=== PATIENT | female | born 1930 | race Caucasian/White ===

== ENCOUNTER → 2018-01-29 | Outpatient (CLI) | payer MEDICARE, BC | END | disposition home or self-care (01) | LOC: US 06:56 | DX: N28.1 Cyst of kidney, acquired (principal); I10 Essential (primary) hypertension; E78.5 Hyperlipidemia, unspecified | CPT/HCPCS: 76700 ==

== ENCOUNTER → 2018-10-10 | Outpatient (CLI) | payer MEDICARE, BC ==
[2018-05-22 09:43] VITALS: BP 154/64
[~2018-10-10] MED LIST: ASPI-482 PO; BENA40TA15 PO; ESTR0.3T PO; HYDR12.58 PO; LEVO50TA5 PO; LISI-130 PO; METO25TA4 PO; MULT-246 PO; OMEP20CA5 PO; SIMV40TA PO; SPIR25TA PO
--- NOTE | 2018-10-10 15:19 | RAD ---
Indication: Chronic kidney disease stage III. Follow-up of right renal cyst ultrasound. TECHNIQUE: Grayscale, color Doppler images of the kidneys. COMPARISON: Ultrasound abdomen from 01/29/2018 FINDINGS: There is a lobulated anechoic lesion in the upper pole of the right kidney measuring 3.1 x 4.1 x 4.5 cm, previously 5.6 x 3.8 x 6.0 cm without internal vascularity, septations or solid mural nodularity. The right kidney demonstrates no hydronephrosis. The right kidney measures 10.2 x 4.3 x 5.7 cm (longitudinal, AP, transverse). The left kidney measures 10.6 x 5.3 x 4.3 cm without hydronephrosis but with diffusely thin cortex. Visualized bladder within normal limits. IMPRESSION: 1. Slight interval decrease in the size of right upper pole simple renal cyst. 2. Evidence of chronic kidney disease. No hydronephrosis. Electronically signed by: Errol Alonzo DO (10/10/2018 3:15 PM) [facility]
== END | disposition home or self-care (01) ==
LOC: US 14:26
PROVIDERS: ATTEND Internal Medicine Nephrology
DX: N28.1 Cyst of kidney, acquired (principal); I12.9 Hypertensive chronic kidney disease with stage 1 through stage 4 chronic kidney disease, or unspecified chronic kidney disease; N18.3 Chronic kidney disease, stage 3 (moderate); Z79.899 Other long term (current) drug therapy
CPT/HCPCS: 76770

== ENCOUNTER → 2019-02-05 | Outpatient (CLI) | payer MEDICARE, BC ==
[2018-05-22 09:43] VITALS: BP 154/64
[~2019-02-05] MED LIST changes: +POTA10TA12 PO
--- NOTE | 2019-02-05 09:29 | CARD ---
MR#: [id number] Date of Study: 02/05/2019 Ordering Physician: TAMMY NIÑO, Referring Physician: TAMMY NIÑO, Tech: Floresita Emerson [facility] APPROVED REPORT EXAM: Two-dimensional and M-mode echocardiogram with Doppler and color Doppler. Other Information Quality : GoodHR: 55bpm Rhythm : Bradycardia INDICATION Congestive Heart Failure 2D DIMENSIONS RVDd3.5 (2.9-3.5cm)Left Atrium(2D)2.5 (1.6-4.0cm) IVSd0.9 (0.7-1.1cm)Aortic Root(2D)2.9 (2.0-3.7cm) LVDd3.5 (3.9-5.9cm)LVOT Diameter1.9 (1.8-2.4cm) PWd0.8 (0.7-1.1cm)LVDs2.4 (2.5-4.0cm) FS (%) 30.2 %SV29.7 ml LVEF(%)58.6 (>50%) M-Mode DIMENSIONS Left Atrium(MM)3.74 (2.5-4.0cm)Aortic Root2.82 (2.2-3.7cm) Aortic Valve AoV Peak Kermit.111.1cm/sAoV VTI28.3cm AO Peak GR.4.9mmHgLVOT Peak Kermit.101.9cm/s AO Mean GR.2mmHgAVA (VMAX)2.54cm2 AARTI (VTI)2.50cm2 Mitral Valve MV E Ukmcccsf32.0cm/sMV DECEL KCTK879ys MV A Wlhtudra69.5cm/sE/A Ratio1.3 Pulmonary Valve PV Peak Hrhnigav51.8cm/s Tricuspid Valve TR P. Qbtwaspc022vy/sRAP GCNWVUKT4scBd TR Peak Gr.43aaWxGDZB06ejOy LEFT VENTRICLE The left ventricle is normal size. There is normal left ventricular wall thickness. The left ventricu lar systolic function is normal and the ejection fraction is within normal range. The Ejection Fracti on is 55-60%. There is normal LV segmental wall motion. Transmitral Doppler flow pattern is Grade II- pseudonormal filling dynamics. RIGHT VENTRICLE The right ventricle is mildly dilated. There is normal right ventricular wall thickness. The right ve ntricular systolic function is normal. ATRIA The left atrium size is normal. The right atrium size is normal. The interatrial septum is intact wit h no evidence for an atrial septal defect or patent foramen ovale as noted on 2-D or Doppler imaging. AORTIC VALVE The aortic valve is mildly calcified. The aortic valve is trileaflet. Doppler and Color Flow revealed no significant aortic regurgitation. There is no significant aortic valvular stenosis. MITRAL VALVE The mitral valve is calcified but opens well. There is no evidence of mitral valve prolapse. There is no mitral valve stenosis. Doppler and Color-flow revealed mild mitral regurgitation. TRICUSPID VALVE The tricuspid valve is normal in structure and function. Doppler and Color Flow revealed mild tricusp id regurgitation.There is mild pulmonary hypertension.The PA pressure was estimated at 39 mmHg. There is no tricuspid valve prolapse or vegetation. There is no tricuspid valve stenosis. PULMONIC VALVE Doppler and Color Flow revealed trace pulmonic valvular regurgitation. There is no pulmonic valvular stenosis. GREAT VESSELS The aortic root is normal in size. The ascending aorta is normal in size. The IVC is normal in size a nd collapses >50% with inspiration. PERICARDIAL EFFUSION There is no evidence of significant pericardial effusion. Critical Notification Critical Value: No <Conclusion> The left ventricular systolic function is normal and the ejection fraction is within normal range. Th e Ejection Fraction is 55-60%. There is normal LV segmental wall motion. Doppler and Color Flow revealed mild tricuspid regurgitation.There is mild pulmonary hypertension.The PA pressure was estimated at 39 mmHg. Signed by : Sukh Andrade, Electronically Approved : 02/05/2019 09:28:52
--- NOTE | 2019-02-05 10:19 | RAD ---
MR#: [id number] Date of Study: 02/05/2019 Ordering Physician: TAMMY NIÑO, Referring Physician: TAMMY NIÑO, Tech: Jalyn Cartagena RDMS, STUARTT, RTR APPROVED REPORT Patient Location : OUT-PATIENT Indications Lower Extremity Edema : Bilateral Greater Saphenous Veins (GSV) Significant venous relux noted in the RIGHT GSV at the following levels : Superficial Femoral Junctio n, Proximal Thigh, Mid Thigh, Mid Thigh, Proximal Calf, Mid Calf, Distal Calf Significant venous relux noted in the LEFT GSV at the following levels : Superficial Femoral Junction , Proximal Thigh, Mid Thigh, Distal Thigh Lesser Saphenous Veins (LSV) Significant venous reflux is noted in the Right LSV. Findings Limited grayscale images of the saphenofemoral junctions do not reveal any obvious evidence of thromb us. The right great saphenous vein measures approximately 5.9 mm and has a reflux time of 2.7 seconds. Th e left great saphenous vein measures approximately 6 mm and has a reflux time of 2.6 seconds. The right small saphenous vein measures approximately 2.7 mm and has a reflux time of 4 seconds. The left lesser saphenous vein is not well visualized appears to be thrombosed. Critical Notification Critical Value: No <Conclusion> Positive for reflux in the bilateral greater and right lesser saphenous vein. The left lesser sapheno us vein appears to be occluded. Signed by : Sukh Andrade, Electronically Approved : 02/05/2019 10:18:41
--- NOTE | 2019-02-05 10:25 | RAD ---
MR#: [id number] Date of Study: 02/05/2019 Ordering Physician: TAMMY NIÑO, Referring Physician: TAMMY NIÑO, Tech: Bethany Ferreira RVT, [facility] APPROVED REPORT Bilateral Lower Extremity Venous Study for CAD/ Leg Swelling Patient Location: OUT-PATIENT Indications Bilateral LE Swelling Vein Imaging (Right) CFV (R): Compressible SFJ (R): Compressible FEM (R): Compressible POP (R): Compressible DFV (R): Compressible PTV (R): Compressible GSV (R): Compressible Peroneals (R): Compressible Vein Imaging (Left) CFV (L): Compressible SFJ (L): Compressible FEM (L): Compressible POP (L): Compressible DFV (L): Compressible PTV (L): Compressible GSV (L): Compressible Peroneals (L): Compressible Doppler Evaluation (Right) CFV (R): Phasic POP (R):Phasic Doppler Evaluation (Left) CFV (L):Phasic POP (L):Phasic Findings The bilateral lower extremity deep veins were evaluated for thrombus with color Doppler, spectral and grayscale images. On the right the grayscale images of the common femoral, superficial femoral and popliteal veins do n ot demonstrate any evidence of thrombus and these veins appear to be compressible. The below-knee vei ns were not well visualized but grossly appear to be compressible. Spectral imaging and color Doppler do not reveal any evidence of obstruction to flow with normal respirophasic variation above the knee . Below the knee there is spontaneous flow noted. On the left, the grayscale images of the common femoral, superficial femoral and popliteal veins do n ot demonstrate any evidence of thrombus and these veins appear to be compressible. The below-knee vei ns again were not well visualized but grossly appear to be compressible. Spectral imaging and color D oppler do not reveal any evidence of obstruction to flow with normal respirophasic variation above th e knee. The below-knee veins demonstrate spontaneous flow. Critical Notification Critical Value: No <Conclusion> Negative for DVT in the bilateral lower extremities. Signed by : Sukh Andrade, Electronically Approved : 02/05/2019 10:25:02
== END | disposition home or self-care (01) ==
LOC: US 07:05
PROVIDERS: ATTEND Internal Medicine Cardiovascular Disease
DX: I08.1 Rheumatic disorders of both mitral and tricuspid valves (principal); I87.2 Venous insufficiency (chronic) (peripheral); I27.20 Pulmonary hypertension, unspecified; I25.10 Atherosclerotic heart disease of native coronary artery without angina pectoris
CPT/HCPCS: 93306; 93970

== ENCOUNTER → 2021-02-17 | Outpatient (CLI) | payer MEDICARE, BC ==
[2018-05-22 09:43] VITALS: BP 154/64
[~2021-02-17] MED LIST changes: +HYDR-2759 PO; +INUL2TAB4 PO; -POTA10TA12 PO; +POTASSIUM CHLO10 ME1 PO
== END ==
LOC: LAB 10:17
PROVIDERS: ATTEND Surgery
DX: Z01.812 Encounter for preprocedural laboratory examination (principal); R92.8 Other abnormal and inconclusive findings on diagnostic imaging of breast; Z20.822 Contact with and (suspected) exposure to COVID-19
CPT/HCPCS: U0003; U0005

== ENCOUNTER 2021-02-22 09:47 | Day surgery (SDC) | payer MEDICARE, BC ==
[~2021-02-22] VITALS: Ht 162.6 cm; Wt 62.0 kg
[~2021-02-22 09:47] MED LIST changes: -HYDR-2759 PO; +HYDROmorphone 2 MG/ML VIAL IVP PRN; +IV RINGERS,LACTATED 1000ML 1,000 ML IV SCH; +MORPHINE SULFATE 2 MG/ML VIAL. IVP PRN; +PROCHLORPERAZINE 10 MG/2 ML VIAL. IVP PRN; +fentaNYL PF VIAL 100 MCG/2 ML VIAL IVP PRN
[2021-02-22] MEDS ORDERED: fentaNYL PF VIAL 100 MCG/2 ML VIAL ONE (10:35)
[2021-02-22] MEDS ORDERED: LIDOCAINE 2% PF 5 ML VIAL. ONE (10:35)
[2021-02-22] MEDS ORDERED: PROPOFOL 10 MG/ML (20ML) VIAL. IV ONE (10:35)
[2021-02-22] MEDS ORDERED: LIDOCAINE 1%/EPI 1:100,000 20 ML VIAL. ONE (11:45)
[2021-02-22] MEDS ORDERED: BUPIVACAINE-EPI 0.5%-1:200000 MPF 30 ML VIAL. ONE (11:45)
[2021-02-22] MEDS ORDERED: HYDROmorphone 2 MG/ML VIAL IVP ONE (12:15)
[2021-02-22] MEDS ORDERED: ONDANSETRON PF 4 MG/2 ML VIAL. ONE (12:25)
[2021-02-22] MEDS ORDERED: ePHEDrine PF IN SALINE 50 MG/10 ML SYRINGE. IV ONE (12:30)
--- NOTE | 2021-02-22 12:51 | PDOC4 ---
Operative Note Operative Note Operative Note: Preoperative Diagnosis: Right breast mass x2 Postoperative Diagnosis: Same Procedure: Right excisional breast biopsy with needle localization Surgeon: Edvin Hoop Coiler: Boby ARROYO Anesthesia: General EBL: 10 mL Specimen: Right breast biopsy to pathology Drains: None Complications: None Indication: The patient is an 89-year-old female who is referred following recent mammographic and sonographic evaluation of the right breast. This identified to retroareolar small nodules consistent with intraductal papillomas. Recommendation was made for biopsy for definitive tissue diagnosis. The risks of surgery were discussed with the patient which include bleeding, infection, pain, scar tissue, wound healing problems, anesthetic risk, potential need for additional surgery procedure. She understands and would like to proceed Description: The patient initially went to radiology where she underwent needle localization of the involved area. She was then brought to the operating room and placed supine in the operating table. General anesthesia was performed. The right breast was prepped with ChloraPrep and draped in a standard surgical manner. The wire was entering near the lateral aspect a few centimeters from the nipple. A curved lateral periareolar incision was made with a scalpel. Cau rachel dissection was carried down to the breast parenchyma. The wire was identified and followed until its distal tip. A combination of sharp and cautery dissection was used. The wire terminated in the superficial retroareolar tissues. We were able to elevate the skin of the nipple and mobilize the localized tissues. Cautery was used for full excision of the involved tissue which was sent to pathology. Hemostasis was achieved with cautery. The skin was approximated with 4-0 Monocryl and infiltrated with half percent Marcaine with epinephrine. Steri-Strips and a sterile dressing were applied. The patient tolerated the procedure well and was sent to the recovery room in stable condition. At the end of the case all counts were correct. ULISES VITAL MD Feb 22, 2021 12:51
--- NOTE | 2021-02-22 12:53 | DISCH ---
DISCHARGE INSTRUCTIONS Condition on Discharge Condition on Discharge: Stable Activity After Discharge Activity Instructions for Disc: Resume previous activity Diet after Discharge Diet after Discharge: Regular Wound Incision Care Wound/Incision Care: Other, see below (keep dressing clean and dry) Follow-Up Follow up with: Dr Vital in 1 week in office, call for appointment [phone] ULISES VITAL MD Feb 22, 2021 12:53
[2021-02-22] MEDS ORDERED: HYDR-2759 PO (13:20)
[2021-02-22] MEDS ORDERED: HYDROcodone/APAP 5/325MG 1 TAB TABLET ONE (13:28)
[2021-02-22] MEDS ORDERED: HYDROcodone/APAP 5/325MG 1 TAB TABLET PO ONE (13:30)
[2021-02-22 13:45] VITALS: BP 154/74
--- NOTE | 2021-03-02 11:09 | PATHOLOGY ---
[facility] Accession Number: [id number] . 01 Material submitted: . breast - RIGHT BREAST BIOPSY. Modifiers: right . 01 Clinical history: . ABNORMAL MAMMOGRAM RIGHT BREAST BIOPSY WITH NEEDLE LOCALIZATION . 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 - DCIS INVOLVES RESECTION MARGIN. - Fibrocystic changes including cyst formation, sclerosing adenosis, and duct ectasia. - Coarse microcalcifications associated with DCIS. - Please see cancer summary below. . SURGICAL PATHOLOGY CANCER CASE SUMMARY Breast DCIS (V 1.0.0.1) . Procedure: Biopsy with needle localization Specimen Laterality: Right Tumor Site: Not specified Histologic Type: Ductal carcinoma in situ (DCIS) Architectural Patterns: Cribriform, micropapillary, solid Nuclear Grade: Grade II (intermediate) Necrosis: Not identified Microcalcifications: Present in DCIS Biomarker: Not performed. (MLK:pit; 03/01/2021) QTP 03/01/2021 1457 Local . 02 Comment: The case is seen in co-review with Dr. Bruce Sykes who concurs with the above diagnosis. . The case was prepared and proofread by Dr. Wiley and electronically released by Dr. Anderson. . 02 Electronically signed: . Ld Anderson MD, Pathologist NPI- [id number] . 01 Gross description: . Fixative: Formalin Labeled: R breast biopsy Specimen received: Unoriented portion of yellow-rodas tissue Oriented: No Dimensions: 2.7 x 2.7 x 1.3 cm Weight: 3 g The specimen is inked black. Number of slices: 7 Lesion: 2.5 x 1.3 x 0.7 cm area of rodas-white fibrous/cystic tissue Lesion location: Slices 2-6 The lesion grossly abuts the inked margin. Biopsy clip: None identified Uninvolved breast parenchyma: Yellow and lobulated . The specimen is submitted as follows: A1 slice 1, perpendicular sections A2 slice 2-3 A3 slice 4-5 A4 slice 6 A5 slice 7, perpendicular sections . The specimen is removed from the patient at 1220 and placed in formalin at 1225 on 02/22/2021. The specimen is removed from formalin at 1850 on 02/23/2021. The specimen is in formalin for greater than 6 hours and less than 72 hours. ([facility] [place]; 02/23/2021) [facility] 02/23/2021 0857 Local . 02 Microscopic: . Immunohistochemical stain results (properly controlled) P63(A1, A2, A3, A4, A5) - Highlights myoepithelial cells, and notable absence of myoepithelial cells in areas of DCIS. Myosin(A1, A2, A3, A4, A5) - Highlights myoepithelial cells, notable absence of myoepithelial cells in areas of DCIS. E-cadherin (A1, A2, A3, A4, A5) - Highlights ductal epithelial cells. (MLK:ricky; 03/01/2021) . 02 Pathologist provided ICD-10: D05.11, N60.11, N60.01, N60.21, N60.41 . 02 CPT . 260624, U32830, [id number] Specimen Comment: A courtesy copy of this report has been sent to [phone] Specimen Comment: Report sent to Performed at: 01 [facility] [address], [place] [id number] MD Nathan Zavala MD Phone: [phone] Performed at: 02 [facility] [address] [id number] MD Ld Anderson MD Phone: [phone]
== END 2021-02-22 14:01 | disposition home or self-care (01) ==
LOC: SURG 09:47
PROVIDERS: ATTEND Surgery
DX: R92.8 Other abnormal and inconclusive findings on diagnostic imaging of breast (principal); N63.10 Unspecified lump in the right breast, unspecified quadrant; D05.11 Intraductal carcinoma in situ of right breast; N60.11 Diffuse cystic mastopathy of right breast; N60.01 Solitary cyst of right breast; N60.21 Fibroadenosis of right breast; N60.41 Mammary duct ectasia of right breast; I11.0 Hypertensive heart disease with heart failure; I50.9 Heart failure, unspecified; E78.00 Pure hypercholesterolemia, unspecified; E03.9 Hypothyroidism, unspecified; Z90.710 Acquired absence of both cervix and uterus; Z98.890 Other specified postprocedural states; Z88.0 Allergy status to penicillin; Z88.1 Allergy status to other antibiotic agents; Z85.828 Personal history of other malignant neoplasm of skin; Z79.82 Long term (current) use of aspirin; Z79.4 Long term (current) use of insulin; Z79.899 Other long term (current) drug therapy
CPT/HCPCS: 19125; 19285; 77065; 88305; 88341; 88342; A4364; A6254; A6258; A6402; C1819; J1956; J2405; J2704; J3010; A4452; J3490

== ENCOUNTER → 2021-02-22 | Outpatient (CLI) | payer MEDICARE, BC ==
[2018-05-22 09:43] VITALS: BP_SYST 154
[2021-02-22 13:45] VITALS: BP_DIAS 74
--- NOTE | 2021-02-22 15:27 | RAD ---
EXAM: Sonographic guided right breast needle-wire localization; right breast post localization mammog ge. HISTORY: 82-year-old female presents for needle-wire localization of suspected papilloma is within th e right breast demonstrated on a prior sonogram. TECHNIQUE: The risks of the procedure were discussed with the patient and written and and verbal cons ent was obtained. A timeout was performed. Significant imaging of the right breast was performed and the dilated ducts containing solid-appearing nodules within the subareolar location were identified. The skin in this location was sterilely prepped, draped and infiltrated with 1 percent lidocaine. A n eedle wire system was advanced through both nodules using sonographic guidance and the wire was deplo yed. The wire secured to the skin surface. A post biopsy mammogram confirms positioning of the wire w ithin the 9:00 subareolar aspect of the right breast. The patient tolerated the procedure without com plication and was transferred to the operative suite in stable condition. IMPRESSION: 1. Successful sonographic guided needle-wire localization of small solid-appearing nodules within dil ated ducts within the 9:00 subareolar aspect of the right breast. 2. Note is made that there are several additional small solid-appearing nodules within dilated ducts throughout the cerebral aspect of the right breast, the appearance of which favors papillomatosis. Th e superimposed on intraductal debris. The largest nodules demonstrated on the prior sonogram were tar geted for localization and tissue sampling. Electronically signed by: Margaret Horn MD (02/22/2021 3:24 PM) [id number]
== END | disposition home or self-care (01) ==
LOC: MAMMO 09:45
PROVIDERS: ATTEND Surgery
DX: N63.10 Unspecified lump in the right breast, unspecified quadrant (principal); R92.8 Other abnormal and inconclusive findings on diagnostic imaging of breast; I11.0 Hypertensive heart disease with heart failure; I50.9 Heart failure, unspecified; I25.10 Atherosclerotic heart disease of native coronary artery without angina pectoris; E78.00 Pure hypercholesterolemia, unspecified; K21.9 Gastro-esophageal reflux disease without esophagitis; E03.9 Hypothyroidism, unspecified; Z85.828 Personal history of other malignant neoplasm of skin; Z90.710 Acquired absence of both cervix and uterus; Z98.890 Other specified postprocedural states; Z79.82 Long term (current) use of aspirin; Z79.4 Long term (current) use of insulin; Z79.899 Other long term (current) drug therapy; Z88.0 Allergy status to penicillin; Z88.2 Allergy status to sulfonamides
CPT/HCPCS: 19285; 77065; C1819

== ENCOUNTER 2021-04-16 17:56 | Emergency (ER) | payer MEDICARE, BC ==
[~2021-04-16] VITALS: Ht 160 cm; Wt 59.1 kg
[~2021-04-16 17:56] MED LIST changes: +HYDR-2759 PO; -HYDROmorphone 2 MG/ML VIAL IVP PRN; -IV RINGERS,LACTATED 1000ML 1,000 ML IV SCH; -MORPHINE SULFATE 2 MG/ML VIAL. IVP PRN; -PROCHLORPERAZINE 10 MG/2 ML VIAL. IVP PRN; -fentaNYL PF VIAL 100 MCG/2 ML VIAL IVP PRN
[2021-04-16 18:20] LABS: BILIRUBIN,URINE NEGATIVE (NEG); CLARITY,URINE CLEAR; COLOR,URINE YELLOW; NITRITE,URINE NEGATIVE (NEG); PROTEIN,URINE NEGATIVE (NEG-TRACE); UROBILINOGEN,URINE 0.2 mg/dL (0.2 mg/dL)
[2021-04-16 18:26] LABS: BACTERIA,URINE 0 /HPF (0-FEW); WBC,URINE OCC /HPF (0-4)
[2021-04-16] MEDS ORDERED: IV NORMAL SALINE 1000ML BAG 1,000 ML IV ONE (18:30)
--- NOTE | 2021-04-16 18:47 | PHYS DOC ---
Past Medical History Past Medical History: GERD, High Cholesterol, Hypertension, Hypothyroid, Other Additional Past Medical Histor: SHINGLES, CELLULITIS Past Surgical History: Other Additional Past Surgical Histo: LIVER SURGERY,BASAL CELL CA NOSE,HEART CATH, Smoking Status: Never Smoker Alcohol Use: None Drug Use: None General Adult EDM: Chief Complaint: HYPERTENSION HPI: HPI: Patient is a 89 year old female past medical history hypothyroid presents with a chief complaint of hypertension. Prior to arrival patient was watching the [employer] game and decided to take her blood pressure. Blood pressure on the monitor was greater than 200/100 systolic. She denied any associated symptoms such as headache chest pain or shortness of breath. Patient's initial blood pressure shortly after arrival was 170 systolic. At the time of my exam patient blood pressure was again elevated at 220/120 systolic. Review of Systems: Review of Systems: Review of systems: Constitutional symptoms- No fever, no chills. Eyes- No Discharge, No Visual Loss Respiratory symptoms- No shortness of breath, No wheezing, No Dyspnea on Exertion Cardiovascular Systems; No chest pain, No Palpitations, No syncope Gastrointestinal symptoms: NO abdominal pain, no nausea, no vomiting or diarrhea. Genitourinary symptoms: No dysuria. Musculoskeletal symptoms: No back pain No extremity pain. NEUROLOGICAL Symptoms: No headache, no generalized weakness; No focal Weakness Skin: No rash. Heart Score: C/O Chest Pain: N/A Risk Factors: Risk Factors: DM, Current or recent (<one month) smoker, HTN, HLP, family history of CAD, obesity. Risk Scores: Score 0 - 3: 2.5% MACE over next 6 weeks - Discharge Home Score 4 - 6: 20.3% MACE over next 6 weeks - Admit for Clinical Observation Score 7 - 10: 72.7% MACE over next 6 weeks - Early Invasive Strategies Current Medications: Current Medications Medications (Trade) Dose Ordered Sig/Charmaine Start Time Stop Time Status Last Admin Dose Admin Sodium Chloride 1,000 ml @ 1,000 mls/hr 1X ONCE 04/16/21 18:30 04/16/21 19:29 Allergies: Allergies: Allergies Coded Allergies Type Severity Reaction Last Updated Verified Penicillins Allergy Intermediate HIVES 02/22/21 Yes Sulfa (Sulfonamide Antibiotics) Allergy Intermediate HIVES/RASH 02/22/21 Yes Physical Exam: PE: General: alert, no acute distress. Skin: warm, dry and intact. HENT: bilateral external ears normal, oropharynx moist, nose normal. Head:: Normocephalic, atraumatic. Neck: Trachea midline. Eyes: EOMI, Normal conjunctiva, No drainage CARDIOVASCULAR: Regular rate and rhythm RESPIRATORY: No respiratory distress Back: Full range of motion. Skin: Warm, dry, no erythema, no rash. MUSCULOSKELETAL: Full range of motion of bilateral upper and lower extremities. GASTROINTESTINAL: Abdomen soft without rebound or guarding. NEUROLOGICAL: Alert and noted to person, place and time. No neurological deficits observed Psychiatric: Cooperative. Normal judgment Current Patient Data: Labs: Laboratory Tests Test 04/16/21 18:06 Urine Collection Type Unknown Urine Color Yellow Urine Clarity Clear Urine pH 7.0 (<5.0-8.0) Urine Specific [place] <=1.005 (1.000-1.030) Urine Protein Negative mg/dL (NEG-TRACE) Urine Glucose (UA) Negative mg/dL (NEG) Urine Ketones (Stick) Negative mg/dL (NEG) Urine Blood Small (NEG) Urine Nitrite Negative (NEG) Urine Bilirubin Negative (NEG) Urine Urobilinogen Dipstick 0.2 mg/dL (0.2 mg/dL) Urine Leukocyte Esterase Negative (NEG) Urine RBC 3-5 /HPF (0-2) Urine WBC Occ /HPF (0-4) Urine Squamous Epithelial Cells Occ /LPF Urine Bacteria 0 /HPF (0-FEW) EKG: EKG: Performed at 1927 Rate 65 Normal sinus rhythm No ST elevation No ST depression No acute SC [] Radiology/Procedures: Radiology/Procedures: [] Course & Med Decision Making: Course & Med Decision Making Pertinent Labs and Imaging studies reviewed. (See chart for details) [] Patient was evaluated for chief complaint. Work-up consisted of laboratory analysis. Treatment included labetalol 20 mg IV push. Patient's blood pressure improved to the 160s systolic. Reevaluation after observation and patient's blood pressures in the 220s. Patient was then redosed with labetalol 40 mg. Post treatment patient's blood pressure is improved to the 170s. After observation patient's blood pressure was briefly in the 80s systolic. 2200 hrs. blood pressure 130/60 Patient states she is uncomfortable going home and would like to be admitted Due to alternating hypertension hypotension. Patient continues to deny any discomfort. Chen Disclaimer: Chen Disclaimer: This electronic medical record was generated, in whole or in part, using a voice recognition dictation system. Departure Departure Impression: Primary Impression: Hypertension Disposition: 09 ADMITTED INPATIENT Admitting Physician: DONALD Condition: STABLE Referrals: JANES MALAVE MD (PCP) CHAR DAY DO Apr 16, 2021 18:47
[2021-04-16] MEDS ORDERED: LABETALOL 20 MG/4 ML DISP.SYRIN. IVP ONE ×2 (19:00→21:30)
[2021-04-16 19:48] LABS: BASO % 1 % (0-3); EOS # 0.2 x10^3/uL (0.0-0.7); EOS % 5 % (0-3); HEMATOCRIT 38.3 % (36.0-47.0); HEMOGLOBIN 13.1 g/dL (12.0-15.5); LYMPH % 21 % (24-48); MEAN CORPUSCULAR HEMOGLOBIN 35 pg (25-35); MEAN CORPUSCULAR HGB CONC 34 g/dL (31-37); MEAN CORPUSCULAR VOLUME 102 fL (79-100); MONO # 0.5 x10^3/uL (0.0-1.1); MONO % 11 % (0-9); NEUT # 2.9 x10^3/uL (1.8-7.7); NEUT % 62 % (31-73); PLATELET COUNT 206 x10^3/uL (140-400); RED BLOOD COUNT 3.76 x10^6/uL (3.50-5.40); RED CELL DISTRIBUTION WIDTH 13.1 % (11.5-14.5); WHITE BLOOD COUNT 4.7 x10^3/uL (4.0-11.0)
[2021-04-16 19:55] LABS: CALCIUM 9.1 mg/dL (8.5-10.1); CREATININE 0.9 mg/dL (0.6-1.0); GFR 59.1; POTASSIUM 4.1 mmol/L (3.5-5.1)
[2021-04-16 20:00] LABS: ALBUMIN 3.8 g/dL (3.4-5.0); ALBUMIN/GLOBULIN RATIO 0.9 (1.0-1.7); TOTAL BILIRUBIN 0.4 mg/dL (0.2-1.0)
--- NOTE | 2021-04-17 00:18 | EKG ---
[facility] [address] [place] [address] Test Date: 2021-04-16 Test Time: 19:27:52 Pat Name: AKIKO JUAN Department: Room: Gender: F Pharm Spec: : [id number] Requested By: CHAR DAY Order Number: [id number] Reading MD: Measurements Intervals [place] Rate: 65 P: 102 NV: 218 QRS: -21 QRSD: 78 T: 21 QT: 518 QTc: 545 Interpretive Statements SINUS RHYTHM LEFTWARD AXIS R-S TRANSITION ZONE IN V LEADS DISPLACED TO THE LEFT PROLONGED QT NO SPECIFIC ECG ABNORMALITIES RI6.02 No previous ECG available for comparison
[2021-04-17 06:41] VITALS: BP 164/81
--- NOTE | 2021-04-17 07:25 | PDOC1 ---
History and Physical Date of Admission Date of Admission DATE: 04/17/21 TIME: 07:10 Identification/Chief Complaint Chief Complaint Hypertension Source Source: Chart review, Patient History of Present Illness History of Present Illness Patient is a 89-year-old female with past medical history hypothyroidism, HLD, HTN, GERD, who presents to the ED with complaints of hypertension. Patient states that she took her blood pressure yesterday while watching a [employer] game and noted her blood pressure to be 200/100 mmHg. She denies any associated headache, chest pain, or shortness of breath. Upon arrival in the ED her blood pressure was noted to be 220/120 mmHg. Labs on admission showed troponin <0.017, creatinine 0.9. She was treated with IV labetalol x2, with some resultant hypotension with SBP in the 80s. Patient states she does not currently take any blood pressure medications, and she was taken off metoprolol due to bradycardia. She was admitted for further medical management. Past Medical History Cardiovascular: HTN, Hyperlipidemia, Other GI: GERD Endocrine: Hypothyroidism Past Surgical History Past Surgical History: Other (Liver surgery, left heart catheterization) Family History Family History: High Cholestrol, Hypertension Social History Smoke: No ALCOHOL: none Drugs: None Current Problem List Problem List Problems Medical Problems: (1) Hypertension Status: Acute Current Medications Current Medications Current Medications Sodium Chloride 1,000 ml @ 1,000 mls/hr 1X ONCE IV ; Start 04/16/21 at 18:30; Stop 04/16/21 at 18:44; Status DC Labetalol HCl (Normodyne Iv Push) 20 mg 1X ONCE IVP Last administered on 04/16/21at 19:43; Start 04/16/21 at 19:00; Stop 04/16/21 at 19:01; Status DC Labetalol HCl (Normodyne Iv Push) 40 mg 1X ONCE IVP Last administered on 04/16/21at 21:14; Start 04/16/21 at 21:30; Stop 04/16/21 at 21:31; Status DC Aspirin (Ecotrin) 81 mg DAILY PO ; Start 04/17/21 at 09:00; Status UNV Levothyroxine Sodium (Synthroid) 50 mcg DAILYAC PO ; Start 04/17/21 at 07:30; Status UNV Non-Formulary Medication (Inulin (Fiber Gummies)) 1 tab DAILY PO ; Start 04/17/21 at 09:00; Status UNV Active Scripts Active Reported Fiber Gummies (Inulin) 2 Gm Tab.chew 1 Tab PO DAILY 30 Days Levothyroxine Sodium 50 Mcg Tablet 50 Mcg PO DAILYAC Aspir 81 (Aspirin) 81 Mg Tablet.dr 1 Tab PO DAILY Premarin (Estrogens, Conjugated) 0.3 Mg Tablet 1 Tab PO DAILY Allergies Allergies: Coded Allergies: Penicillins (Verified Allergy, Intermediate, HIVES, 02/22/21) Sulfa (Sulfonamide Antibiotics) (Verified Allergy, Intermediate, HIVES/RASH, 02/22/21) ROS Review of System GENERAL: No history of weight change, weakness or fevers. SKIN: No bruising, hair changes or rashes. EYES: No blurred, double or loss of vision. NOSE AND THROAT: No history of nosebleeds, hoarseness or sore throat. HEART: Hypertension. Denies chest pain, denies palpitations. LUNGS: Denies cough, hemoptysis, wheezing or shortness of breath. GASTROINTESTINAL: Denies nausea, vomiting, abdominal pain. GENITOURINARY: Denies dysuria, frequency, urgency, hematuria. NEUROLOGIC: Denies history of numbness, tingling, tremor or weakness. PSYCHIATRIC: Denies anxiety, denies depression. ENDOCRINE: No history of heat or cold intolerance, polyuria or polydipsia. EXTREMITIES: Denies muscle weakness, joint pain, pain on walking or stiffness. Physical Exam Physical Exam General: Alert, Oriented X3, Cooperative, No acute distress HEENT: PERRLA, EOMI Lungs: Clear to auscultation, Normal air movement Heart: RRR, no murmurs Cardiovascular: S1, S2 Abdomen: Normal bowel sounds, Soft, No tenderness Extremities: No clubbing, No cyanosis Skin: No rashes, No significant lesion Neuro: Normal speech, Normal tone, Sensation intact Psych/Mental Status: Mental status NL, Mood NL Vitals Vitals Vital Signs Date Time Temp Pulse Resp B/P (MAP) Pulse Ox O2 Delivery O2 Flow Rate FiO2 04/17/21 02:41 57 15 165/78 (107) 97 Room Air 04/16/21 18:00 98.2 98.2 Labs Labs Laboratory Tests Test 04/16/21 18:06 04/16/21 19:30 Urine Collection Type Unknown Urine Color Yellow Urine Clarity Clear Urine pH 7.0 (<5.0-8.0) Urine Specific [place] <=1.005 (1.000-1.030) Urine Protein Negative mg/dL (NEG-TRACE) Urine Glucose (UA) Negative mg/dL (NEG) Urine Ketones (Stick) Negative mg/dL (NEG) Urine Blood Small (NEG) Urine Nitrite Negative (NEG) Urine Bilirubin Negative (NEG) Urine Urobilinogen Dipstick 0.2 mg/dL (0.2 mg/dL) Urine Leukocyte Esterase Negative (NEG) Urine RBC 3-5 /HPF (0-2) Urine WBC Occ /HPF (0-4) Urine Squamous Epithelial Cells Occ /LPF Urine Bacteria 0 /HPF (0-FEW) White Blood Count 4.7 x10^3/uL (4.0-11.0) Red Blood Count 3.76 x10^6/uL (3.50-5.40) Hemoglobin 13.1 g/dL (12.0-15.5) Hematocrit 38.3 % (36.0-47.0) Mean Corpuscular Volume 102 fL (79-100) Mean Corpuscular Hemoglobin 35 pg (25-35) Mean Corpuscular Hemoglobin Concent 34 g/dL (31-37) Red Cell Distribution Width 13.1 % (11.5-14.5) Platelet Count 206 x10^3/uL (140-400) Neutrophils (%) (Auto) 62 % (31-73) Lymphocytes (%) (Auto) 21 % (24-48) Monocytes (%) (Auto) 11 % (0-9) Eosinophils (%) (Auto) 5 % (0-3) Basophils (%) (Auto) 1 % (0-3) Neutrophils # (Auto) 2.9 x10^3/uL (1.8-7.7) Lymphocytes # (Auto) 1.0 x10^3/uL (1.0-4.8) Monocytes # (Auto) 0.5 x10^3/uL (0.0-1.1) Eosinophils # (Auto) 0.2 x10^3/uL (0.0-0.7) Basophils # (Auto) 0.0 x10^3/uL (0.0-0.2) Sodium Level 142 mmol/L (136-145) Potassium Level 4.1 mmol/L (3.5-5.1) Chloride Level 103 mmol/L (98-107) Carbon Dioxide Level 31 mmol/L (21-32) Anion Gap 8 (6-14) Blood Urea Nitrogen 16 mg/dL (7-20) Creatinine 0.9 mg/dL (0.6-1.0) Estimated GFR (Cockcroft-Gault) 59.1 BUN/Creatinine Ratio 18 (6-20) Glucose Level 109 mg/dL (70-99) Calcium Level 9.1 mg/dL (8.5-10.1) Total Bilirubin 0.4 mg/dL (0.2-1.0) Aspartate Amino Transf (AST/SGOT) 29 U/L (15-37) Alanine Aminotransferase (ALT/SGPT) 24 U/L (14-59) Alkaline Phosphatase 120 U/L (46-116) Troponin I Quantitative < 0.017 ng/mL (0.000-0.055) Total Protein 8.0 g/dL (6.4-8.2) Albumin 3.8 g/dL (3.4-5.0) Albumin/Globulin Ratio 0.9 (1.0-1.7) Laboratory Tests Test 04/16/21 18:06 04/16/21 19:30 Urine Collection Type Unknown Urine Color Yellow Urine Clarity Clear Urine pH 7.0 (<5.0-8.0) Urine Specific [place] <=1.005 (1.000-1.030) Urine Protein Negative mg/dL (NEG-TRACE) Urine Glucose (UA) Negative mg/dL (NEG) Urine Ketones (Stick) Negative mg/dL (NEG) Urine Blood Small (NEG) Urine Nitrite Negative (NEG) Urine Bilirubin Negative (NEG) Urine Urobilinogen Dipstick 0.2 mg/dL (0.2 mg/dL) Urine Leukocyte Esterase Negative (NEG) Urine RBC 3-5 /HPF (0-2) Urine WBC Occ /HPF (0-4) Urine Squamous Epithelial Cells Occ /LPF Urine Bacteria 0 /HPF (0-FEW) White Blood Count 4.7 x10^3/uL (4.0-11.0) Red Blood Count 3.76 x10^6/uL (3.50-5.40) Hemoglobin 13.1 g/dL (12.0-15.5) Hematocrit 38.3 % (36.0-47.0) Mean Corpuscular Volume 102 fL (79-100) Mean Corpuscular Hemoglobin 35 pg (25-35) Mean Corpuscular Hemoglobin Concent 34 g/dL (31-37) Red Cell Distribution Width 13.1 % (11.5-14.5) Platelet Count 206 x10^3/uL (140-400) Neutrophils (%) (Auto) 62 % (31-73) Lymphocytes (%) (Auto) 21 % (24-48) Monocytes (%) (Auto) 11 % (0-9) Eosinophils (%) (Auto) 5 % (0-3) Basophils (%) (Auto) 1 % (0-3) Neutrophils # (Auto) 2.9 x10^3/uL (1.8-7.7) Lymphocytes # (Auto) 1.0 x10^3/uL (1.0-4.8) Monocytes # (Auto) 0.5 x10^3/uL (0.0-1.1) Eosinophils # (Auto) 0.2 x10^3/uL (0.0-0.7) Basophils # (Auto) 0.0 x10^3/uL (0.0-0.2) Sodium Level 142 mmol/L (136-145) Potassium Level 4.1 mmol/L (3.5-5.1) Chloride Level 103 mmol/L (98-107) Carbon Dioxide Level 31 mmol/L (21-32) Anion Gap 8 (6-14) Blood Urea Nitrogen 16 mg/dL (7-20) Creatinine 0.9 mg/dL (0.6-1.0) Estimated GFR (Cockcroft-Gault) 59.1 BUN/Creatinine Ratio 18 (6-20) Glucose Level 109 mg/dL (70-99) Calcium Level 9.1 mg/dL (8.5-10.1) Total Bilirubin 0.4 mg/dL (0.2-1.0) Aspartate Amino Transf (AST/SGOT) 29 U/L (15-37) Alanine Aminotransferase (ALT/SGPT) 24 U/L (14-59) Alkaline Phosphatase 120 U/L (46-116) Troponin I Quantitative < 0.017 ng/mL (0.000-0.055) Total Protein 8.0 g/dL (6.4-8.2) Albumin 3.8 g/dL (3.4-5.0) Albumin/Globulin Ratio 0.9 (1.0-1.7) VTE Prophylaxis Ordered VTE Prophylaxis Devices: No VTE Pharmacological Prophylaxi: Yes Assessment/Plan Assessment/Plan Hypertensive urgency Hypothyroidism GERD Plan: Patient treated in ED with labetalol with some resulting hypotension. Remaining blood pressures have been relatively stable most recent 165/78 mmHg She is still without complaints. Patient states that she can follow-up with her PCP within 1 week, and notes her warp spinner is Dr. Combs. Resume home medications and will discharge today on chlorthalidone. FEN - Cardiac diet PPX - Heparin FULL CODE Dispo - OBS for above Justifications for Admission Other Justification SIRI CALL MD Apr 17, 2021 07:25
[2021-04-17] MEDS ORDERED: MORPHINE SULFATE 2 MG/ML VIAL. IV PRN (07:30)
[2021-04-17] MEDS ORDERED: MAGNESIUM HYDROXIDE 2,400 MG/30 ML ORAL.SUSP. PO PRN (07:30)
[2021-04-17] MEDS ORDERED: CALCIUM CARBONATE 500 MG TAB.CHEW PO PRN (07:30)
[2021-04-17] MEDS ORDERED: LEVOTHYROXINE 50 MCG TABLET PO SCH (07:30)
[2021-04-17] MEDS ORDERED: ACETAMINOPHEN 325 MG TABLET. PO PRN (07:30)
[2021-04-17] MEDS ORDERED: ONDANSETRON PF 4 MG/2 ML VIAL. IVP PRN (07:30)
[2021-04-17] MEDS ORDERED: BISACODYL 10 MG SUPP.RECT. PR PRN (07:30)
[2021-04-17] MEDS ORDERED: MAG HYDROX/ALUMINUM HYD/SIMETH 30 ML ORAL.SUSP PO PRN (07:30)
[2021-04-17 08:29] VITALS: BP 165/74
[2021-04-17] MEDS ORDERED: INULIN PO SCH (09:00)
[2021-04-17] MEDS ORDERED: ASPIRIN ENTERIC COATED 81 MG TABLET.DR. PO SCH (09:00)
[2021-04-17] MEDS ORDERED: HEPARIN for SUB-Q USE 5,000 UNIT/ML VIAL. SQ SCH (09:00)
[2021-04-17] MEDS ORDERED: CHLO25TA10 PO (09:07)
--- NOTE | 2021-04-17 09:11 | PDOC3 ---
Discharge Summary Visit Information Date of Admission: Apr 17, 2021 Date of Discharge: Apr 17, 2021 Final Diagnosis Problems Medical Problems: (1) Hypertension Status: Acute Brief Hospital Course Allergies Allergies Coded Allergies Type Severity Reaction Last Updated Verified Penicillins Allergy Intermediate HIVES 02/22/21 Yes Sulfa (Sulfonamide Antibiotics) Allergy Intermediate HIVES/RASH 02/22/21 Yes Vital Signs Vital Signs Date Time Temp Pulse Resp B/P (MAP) Pulse Ox O2 Delivery O2 Flow Rate FiO2 04/17/21 08:29 98.7 65 16 165/74 (104) 97 Room Air 98.7 Lab Results Laboratory Tests Test 04/16/21 18:06 04/16/21 19:30 Urine Collection Type Unknown Urine Color Yellow Urine Clarity Clear Urine pH 7.0 (<5.0-8.0) Urine Specific [place] <=1.005 (1.000-1.030) Urine Protein Negative mg/dL (NEG-TRACE) Urine Glucose (UA) Negative mg/dL (NEG) Urine Ketones (Stick) Negative mg/dL (NEG) Urine Blood Small (NEG) Urine Nitrite Negative (NEG) Urine Bilirubin Negative (NEG) Urine Urobilinogen Dipstick 0.2 mg/dL (0.2 mg/dL) Urine Leukocyte Esterase Negative (NEG) Urine RBC 3-5 /HPF (0-2) Urine WBC Occ /HPF (0-4) Urine Squamous Epithelial Cells Occ /LPF Urine Bacteria 0 /HPF (0-FEW) White Blood Count 4.7 x10^3/uL (4.0-11.0) Red Blood Count 3.76 x10^6/uL (3.50-5.40) Hemoglobin 13.1 g/dL (12.0-15.5) Hematocrit 38.3 % (36.0-47.0) Mean Corpuscular Volume 102 fL (79-100) Mean Corpuscular Hemoglobin 35 pg (25-35) Mean Corpuscular Hemoglobin Concent 34 g/dL (31-37) Red Cell Distribution Width 13.1 % (11.5-14.5) Platelet Count 206 x10^3/uL (140-400) Neutrophils (%) (Auto) 62 % (31-73) Lymphocytes (%) (Auto) 21 % (24-48) Monocytes (%) (Auto) 11 % (0-9) Eosinophils (%) (Auto) 5 % (0-3) Basophils (%) (Auto) 1 % (0-3) Neutrophils # (Auto) 2.9 x10^3/uL (1.8-7.7) Lymphocytes # (Auto) 1.0 x10^3/uL (1.0-4.8) Monocytes # (Auto) 0.5 x10^3/uL (0.0-1.1) Eosinophils # (Auto) 0.2 x10^3/uL (0.0-0.7) Basophils # (Auto) 0.0 x10^3/uL (0.0-0.2) Sodium Level 142 mmol/L (136-145) Potassium Level 4.1 mmol/L (3.5-5.1) Chloride Level 103 mmol/L (98-107) Carbon Dioxide Level 31 mmol/L (21-32) Anion Gap 8 (6-14) Blood Urea Nitrogen 16 mg/dL (7-20) Creatinine 0.9 mg/dL (0.6-1.0) Estimated GFR (Cockcroft-Gault) 59.1 BUN/Creatinine Ratio 18 (6-20) Glucose Level 109 mg/dL (70-99) Calcium Level 9.1 mg/dL (8.5-10.1) Total Bilirubin 0.4 mg/dL (0.2-1.0) Aspartate Amino Transf (AST/SGOT) 29 U/L (15-37) Alanine Aminotransferase (ALT/SGPT) 24 U/L (14-59) Alkaline Phosphatase 120 U/L (46-116) Troponin I Quantitative < 0.017 ng/mL (0.000-0.055) Total Protein 8.0 g/dL (6.4-8.2) Albumin 3.8 g/dL (3.4-5.0) Albumin/Globulin Ratio 0.9 (1.0-1.7) Laboratory Tests Test 04/16/21 18:06 04/16/21 19:30 Urine Collection Type Unknown Urine Color Yellow Urine Clarity Clear Urine pH 7.0 (<5.0-8.0) Urine Specific [place] <=1.005 (1.000-1.030) Urine Protein Negative mg/dL (NEG-TRACE) Urine Glucose (UA) Negative mg/dL (NEG) Urine Ketones (Stick) Negative mg/dL (NEG) Urine Blood Small (NEG) Urine Nitrite Negative (NEG) Urine Bilirubin Negative (NEG) Urine Urobilinogen Dipstick 0.2 mg/dL (0.2 mg/dL) Urine Leukocyte Esterase Negative (NEG) Urine RBC 3-5 /HPF (0-2) Urine WBC Occ /HPF (0-4) Urine Squamous Epithelial Cells Occ /LPF Urine Bacteria 0 /HPF (0-FEW) White Blood Count 4.7 x10^3/uL (4.0-11.0) Red Blood Count 3.76 x10^6/uL (3.50-5.40) Hemoglobin 13.1 g/dL (12.0-15.5) Hematocrit 38.3 % (36.0-47.0) Mean Corpuscular Volume 102 fL (79-100) Mean Corpuscular Hemoglobin 35 pg (25-35) Mean Corpuscular Hemoglobin Concent 34 g/dL (31-37) Red Cell Distribution Width 13.1 % (11.5-14.5) Platelet Count 206 x10^3/uL (140-400) Neutrophils (%) (Auto) 62 % (31-73) Lymphocytes (%) (Auto) 21 % (24-48) Monocytes (%) (Auto) 11 % (0-9) Eosinophils (%) (Auto) 5 % (0-3) Basophils (%) (Auto) 1 % (0-3) Neutrophils # (Auto) 2.9 x10^3/uL (1.8-7.7) Lymphocytes # (Auto) 1.0 x10^3/uL (1.0-4.8) Monocytes # (Auto) 0.5 x10^3/uL (0.0-1.1) Eosinophils # (Auto) 0.2 x10^3/uL (0.0-0.7) Basophils # (Auto) 0.0 x10^3/uL (0.0-0.2) Sodium Level 142 mmol/L (136-145) Potassium Level 4.1 mmol/L (3.5-5.1) Chloride Level 103 mmol/L (98-107) Carbon Dioxide Level 31 mmol/L (21-32) Anion Gap 8 (6-14) Blood Urea Nitrogen 16 mg/dL (7-20) Creatinine 0.9 mg/dL (0.6-1.0) Estimated GFR (Cockcroft-Gault) 59.1 BUN/Creatinine Ratio 18 (6-20) Glucose Level 109 mg/dL (70-99) Calcium Level 9.1 mg/dL (8.5-10.1) Total Bilirubin 0.4 mg/dL (0.2-1.0) Aspartate Amino Transf (AST/SGOT) 29 U/L (15-37) Alanine Aminotransferase (ALT/SGPT) 24 U/L (14-59) Alkaline Phosphatase 120 U/L (46-116) Troponin I Quantitative < 0.017 ng/mL (0.000-0.055) Total Protein 8.0 g/dL (6.4-8.2) Albumin 3.8 g/dL (3.4-5.0) Albumin/Globulin Ratio 0.9 (1.0-1.7) Brief Hospital Course Ms. Scott is a 89 old female who presented with hypertensive urgency. Blood pressure was noted to be 220/120 mmHg. Labs on admission showed troponin <0.017, creatinine 0.9. She was treated with IV labetalol x2, with some resultant hypotension with SBP in the 80s. Patient states she does not currently take any blood pressure medications, and she was taken off metoprolol due to bradycardia. Repeat blood pressure improved to 165/74 mmHg. She was discharged on chlorthalidone and instructed to follow-up with her PCP within the next 5-7 days. Discharge Information Condition at Discharge: Stable Follow Up: Weeks Disposition/Orders: D/C to Home Scheduled Aspirin (Aspir 81) 81 Mg Tablet.dr, 1 TAB PO DAILY for heart health, (Reported) Entered as Reported by: EDISON AMDRID on 07/23/15 1011 Last Action: Continued on 04/17/21 0708 by SIRI CALL MD Chlorthalidone (Chlorthalidone ) 25 Mg Tablet, 25 MG PO DAILY for DIURETIC, #30 Prescribed by: SIRI CALL MD on 04/17/21 0907 Estrogens, Conjugated (Premarin) 0.3 Mg Tablet, 1 TAB PO DAILY for estogen replacement, (Reported) Entered as Reported by: EDISON MADRID on 07/23/15 1011 Inulin (Fiber Gummies) 2 Gm Tab.chew, 1 TAB PO DAILY for constipation for 30 Days, #30 Ref 0 (Reported) Entered as Reported by: PAMELA AJDE on 02/20/21 1411 Last Action: Converted on 04/17/21707 by SIRI CALL MD Levothyroxine Sodium (Levothyroxine Sodium) 50 Mcg Tablet, 50 MCG PO DAILYAC for THYROID SUPPLEMENT, (Reported) Entered as Reported by: CHANTAL GUSMAN on 03/31/19 0945 Last Action: Continued on 04/17/21707 by SIRI CALL MD Justicifation of Admission Dx: Justifications for Admission: Justification of Admission Dx: Yes Angina: New-Onset SIRI CALL MD Apr 17, 2021 09:11
[2021-04-17 11:08] VITALS: BP 133/67
== END 2021-04-16 23:47 | disposition admitted as inpatient to this hospital (09) ==
LOC: ER 17:56 → UNDOADMOB 04-17 04:36 → ED HOLD 04-17 04:36
DX: I10 Essential (primary) hypertension (principal); E78.00 Pure hypercholesterolemia, unspecified; K21.9 Gastro-esophageal reflux disease without esophagitis; E03.9 Hypothyroidism, unspecified; Z88.0 Allergy status to penicillin; Z88.2 Allergy status to sulfonamides
CPT/HCPCS: 36415; 80053; 81001; 84484; 85025; 93005; 96374; 96376; 99285; J3490

== ENCOUNTER → 2021-07-04 | Outpatient (CLI) | payer MEDICARE, BC ==
[2021-04-17 11:08] VITALS: BP 133/67
[~2021-07-04] MED LIST changes: +CHLO25TA10 PO
--- NOTE | 2021-07-04 14:33 | RAD ---
MR#: [id number] Date of Study: 07/04/2021 Ordering Physician: TAMMY NIÑO, Referring Physician: TAMMY NIÑO, Tech: Harshad Izaguirre MBA, RDMS, RVT, RDCS, RTR APPROVED REPORT Patient Location : OUT-PATIENT Indications Lower Extremity Edema : Bilateral Greater Saphenous Veins (GSV) Significant venous relux noted in the RIGHT GSV at the following levels : Superficial Femoral Junctio n, Proximal Thigh, Mid Thigh, Distal Thigh, Proximal Calf, Mid Calf, Distal Calf Significant venous relux noted in the LEFT GSV at the following levels : Superficial Femoral Junction , Proximal Thigh, Mid Thigh, Distal Thigh, Proximal Calf, Mid Calf, Distal Calf Lesser Saphenous Veins (LSV) Significant venous reflux is noted in the Bilateral LSV. Findings Limited grayscale images the bilateral saphenofemoral junctions are grossly unremarkable. On the right the great saphenous vein measures approximately 3.3 mm and has a maximum reflux time of 2.8 seconds. On the left the great saphenous vein measures 4.6 mm and has a maximum reflux time of 3 .2 seconds. The right lesser saphenous vein measures 3.3 mm and has a reflux time of 3.2 seconds. The left lesse r saphenous vein measures 3.4 cm and absent maximal reflux time of 2.7 seconds. Critical Notification Critical Value: No <Conclusion> 1. Positive for reflux the bilateral greater and lesser saphenous veins Signed by : Sukh Andrade, Electronically Approved : 07/04/2021 14:32:51
--- NOTE | 2021-07-04 14:34 | RAD ---
MR#: [id number] Date of Study: 07/04/2021 Ordering Physician: TAMMY NIÑO, Referring Physician: TAMMY NIÑO, Tech: Harshad Izaguirre MBA, RDMS, RVT, RDCS, RTR APPROVED REPORT Bilateral Lower Extremity Venous Study for DVT Patient Location: OUT-PATIENT Indications Lower Extremity Edema: Bilateral Vein Imaging (Right) CFV (R): Compressible SFJ (R): Compressible FEM (R): Compressible POP (R): Compressible DFV (R): Compressible PTV (R): Spontaneous GSV (R): Spontaneous Peroneals (R): Spontaneous Vein Imaging (Left) CFV (L): Compressible SFJ (L): Compressible FEM (L): Compressible POP (L): Compressible DFV (L): Compressible PTV (L): Spontaneous GSV (L): Spontaneous Peroneals (L): Spontaneous Doppler Evaluation (Right) CFV (R): Spontaneous POP (R):Spontaneous Doppler Evaluation (Left) CFV (L):Spontaneous POP (L):Spontaneous Findings The bilateral lower extremity deep veins were evaluated for thrombus with color Doppler, spectral and grayscale images. On the right the grayscale images of the common femoral, superficial femoral and popliteal veins do n ot demonstrate any evidence of thrombus and these veins appear to be compressible. The below-knee vei ns were not well visualized but grossly appear to be compressible. Spectral imaging and color Doppler do not reveal any evidence of obstruction to flow with normal respirophasic variation above the knee . Below the knee there is spontaneous flow noted. On the left, the grayscale images of the common femoral, superficial femoral and popliteal veins do n ot demonstrate any evidence of thrombus and these veins appear to be compressible. The below-knee vei ns again were not well visualized but grossly appear to be compressible. Spectral imaging and color D oppler do not reveal any evidence of obstruction to flow with normal respirophasic variation above th e knee. The below-knee veins demonstrate spontaneous flow. Critical Notification Critical Value: No <Conclusion> 1. Negative for DVT in the bilateral lower extremities. Signed by : Sukh Andrade, Electronically Approved : 07/04/2021 14:34:08
== END ==
LOC: US 12:13
PROVIDERS: ATTEND Internal Medicine Cardiovascular Disease
DX: I87.2 Venous insufficiency (chronic) (peripheral) (principal); R22.43 Localized swelling, mass and lump, lower limb, bilateral
CPT/HCPCS: 93970